=== PATIENT | male | born 1970 | race Caucasian/White ===

== ENCOUNTER → 2021-02-04 | Outpatient (CLI) | payer MEDICARE, OTHER ==
[2021-02-04 16:34] LABS: BUN/CREATININE RATIO 15 (0-10)
== END ==
LOC: LAB 14:45
PROVIDERS: Physician Assistant Surgical
DX: E78.5 Hyperlipidemia, unspecified (principal); I10 Essential (primary) hypertension
CPT/HCPCS: 36415; 80053; 80061